=== PATIENT | male | born 1975 | race Caucasian/White ===

== ENCOUNTER 2022-05-29 15:18 | Emergency (ER) | payer OTHER, SELFPAY ==
[2022-05-29 15:25] VITALS: BP 151/97; PULSE 98; RESP 16; TEMP 37; O2SAT 99
--- NOTE | 2022-05-29 16:16 | W.ED.GENAD ---
Discharge Plan Disposition Patient Disposition: HOME Condition: Stable Discharge Details Clinical Impression: Medication refill Primary Care Provider: Unknown,Unknown ED Provider: Yaa Orozco Home Meds and New Rx's Prescriptions: New hydrocodone-acetaminophen 10-325 mg tablet 1 tab PO Q6H PRN7 Days Qty: 28 0RF Rx Instructions: Take one tablet 4 times daily as needed buprenorphine 20 mcg/hour patch weekly 1 patch transdermal Q7D Qty: 4 0RF No Action dextroamphetamine sulfate 5 mg Tablet 5 mg PO DAILY clonazepam 1 mg Tablet 1 mg PO TID hydrocodone-acetaminophen 10-325 mg Tablet 1 tab PO Q6H vitamin B complex Tablet 1 tab PO DAILY buprenorphine 20 mcg/hour Patch Weekly 1 patch TRANSDERMAL QWEEK Discharge Instructions Instructions: Medicine Refill (ED) Additional Instructions: Please contact your primary care provider's office deceiving get a sooner appointment. The prescription she requested have been sent to the pharmacy on file. Follow up with primary care provider in 3-5 days. Return to ED sooner if any worsening or concerns. Increase oral fluids. Call the Pain clinic here at [facility] tosee about establishing care. Referrals: PAIN CLINIC,[facility] [OTHER] - 3 days Philip Gastelum [ [facility] STAFF PHYSICIAN] - Dionte Penn DO [OSTEOPATHIC DOCTOR] - Discharge Data Discharge Date/Time-TO BE ENTERED AT DEPARTURE: 05/29/22 16:32 Medical Decision Making Prescription refill for buprenorphine transdermal patch #4, and hydrocodone Tylenol No. 20 8 tablets. Patient was placed on future management list and referred to the pain clinic. This text was generated using [employer] dictation system, please disregard any oddities of phrase or misspellings. HPI General Mode of arrival: ambulatory. Date/Time Provider Initiated Documentation: 05/29/22 15:54. Limitations to Documentation: no limitations. Information obtained by: patient and RN notes reviewed. HPI Narrative: 46-year-old male presents to the ER with chief complaint of prescription medication refill. Patient states that he is originally from [place] and was seeing a pain specialist for back problems and he ran out of his pain medication over the weekend. I did check [facility] and he last had hydrocodone Tylenol 10-325 mg #84 filled on May 03, 2022 he also takes buprenorphine 20 mcg patches which she last got filled April 29. He reports that he is scheduled to see his PCP in [place] but not for 1 month. He was unaware that there is a pain clinic here at [facility] I will give him a referral for that. Related Data Home Medications Medication Instructions Recorded Confirmed buprenorphine 20 mcg/hour weekly 1 patch transdermal Q7D #4 ea 05/29/22 transdermal patch buprenorphine 20 mcg/hour weekly 1 patch transdermal QWEEK 05/29/22 05/29/22 transdermal patch clonazepam 1 mg tablet 1 mg PO TID 05/29/22 05/29/22 dextroamphetamine sulfate 5 mg 5 mg PO DAILY 05/29/22 05/29/22 tablet hydrocodone 10 mg-acetaminophen 1 tab PO Q6H 05/29/22 05/29/22 325 mg tablet hydrocodone 10 mg-acetaminophen 1 tab PO Q6H PRN 7 days #28 tabs 05/29/22 325 mg tablet vitamin B complex 1 tab PO DAILY 05/29/22 05/29/22 Previous Rx's Medication Instructions Recorded buprenorphine 20 mcg/hour weekly 1 patch transdermal Q7D #4 ea 05/29/22 transdermal patch hydrocodone 10 mg-acetaminophen 1 tab PO Q6H PRN 7 days #28 tabs 05/29/22 325 mg tablet Allergies Allergy/AdvReac Type Severity Reaction Status Date / Time No Known Allergies Allergy Unverified 05/29/22 15:31 General Stated Complaint: Nk/Back Pain DREA: 4 Review of Systems Narrative: Chronic back pain, Ankylosing Spondylitis All systems reviewed & are unremarkable except as noted in HPI and below PFSH All Active Problems (Updated 05/29/22 @ 16:23 by Yaa Orozco NP) Medication refill (Acute) Social History Smoking/Tobacco Use Status: Never Smoking risk assessment performed?: Yes Alcohol Intake: never Drug use: Never Substance use type: does not use Do you feel safe at home: Yes Do you feel safe in your relationship?: Yes Exam Narrative Exam Narrative: Constitutional: Alert and oriented x3. Appears stated age. Normal body habitus. Head: Normocephalic, no trauma. Chest: RRR, Normal S1, S2, distal pulses intact. Resp: Lungs clear to auscultation bilaterally, no wheezes, rales, or rhonchi. Abdomen: Soft, non-distended, Normoactive bowel sounds all 4 quads. Musculoskeletal: Normal gait, 5/5 strength to all four extremities. Skin: No suspicious rashes or lesions. Capillary refill less than 2 sec. Neurologic: Cranial nerves II-XII intact. Alert and oriented x 3. Motor: No deficits noted. Sensory: Intact bilaterally all 4 extremities. Reflexes: DTR's intact bilaterally.. Hematologic/Lymphatic: No ecchymosis, no lymphadenopathy. Course Vital Signs Vital signs: Vital Signs Temperature 37.0 C 05/29/22 15:25 Pulse 98 H 05/29/22 15:25 Respiratory Rate 16 05/29/22 15:25 Blood Pressure 151/97 H 05/29/22 15:25 Pulse Oximetry 99 05/29/22 15:25 Temperature 37.0 C 05/29/22 15:25 Temperature Source Temporal Artery Scan 05/29/22 15:25 Pulse 98 H 05/29/22 15:25 Respiratory Rate 16 05/29/22 15:25 Blood Pressure 151/97 H 05/29/22 15:25 Blood Pressure Position Sitting 05/29/22 15:25 Pulse Oximetry 99 05/29/22 15:25 Oxygen Delivery Method Room Air 05/29/22 15:25 Oxygen Flow Rate 0 05/29/22 15:25 Pain Level 8 05/29/22 15:25
--- NOTE | 2022-05-29 16:46 | NUR.NOTE ---
Nursing Note: Referral faxed to Pain Clinic for chronic back pain/ankylosingspondylitis; AARON.
== END 2022-05-29 16:32 | disposition home or self-care (01) ==
PROVIDERS: Emergency Provider Registered Nurse Emergency
DX: Z76.0 Encounter for issue of repeat prescription (principal)
CPT/HCPCS: 99281

== ENCOUNTER 2022-06-17 11:28 | Emergency (ER) | payer OTHER, SELFPAY ==
[2022-06-17 11:41] VITALS: BP 156/83; PULSE 117; RESP 18; TEMP 37.2; O2SAT 100
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
== END 2022-06-17 14:00 | disposition home or self-care (01) ==
PROVIDERS: Emergency Provider Physician Assistant
DX: M54.9 Dorsalgia, unspecified (principal); G89.29 Other chronic pain; Z76.0 Encounter for issue of repeat prescription; M40.204 Unspecified kyphosis, thoracic region
CPT/HCPCS: 99281

== ENCOUNTER 2024-05-10 09:41 | Emergency (ER) | payer MEDICARE, MEDICAID, SELFPAY ==
[2024-05-10 09:44] VITALS: BP 168/94; PULSE 98; RESP 20; TEMP 37; O2SAT 98
[2024-05-10 09:57] VITALS: BP 168/80; PULSE 80; RESP 16; TEMP 36.6; O2SAT 98
--- NOTE | 2024-05-10 10:02 | ED.GENADUL_ITS ---
Discharge Plan Disposition Patient Disposition: Home Condition: Improving Discharge Details Clinical Impression: Dental infection Primary Care Provider: Chris Topete ED Provider: German Clemons Home Meds and New Rx's Prescriptions: New amoxicillin-pot clavulanate 875-125 mg tablet 1 tab PO BID 7 Days Qty: 14 0RF No Action dextroamphetamine sulfate 5 mg Tablet 5 mg PO DAILY clonazepam 1 mg Tablet 1 mg PO TID hydrocodone-acetaminophen 10-325 mg Tablet 1 tab PO Q6H vitamin B complex Tablet 1 tab PO DAILY buprenorphine 20 mcg/hour patch weekly 1 patch transdermal Q7D Qty: 4 0RF Discharge Instructions Instructions: Dental Pain Additional Instructions: Please follow-up with primary dentist and primary care physician. Return to the emergency department for any worsening symptoms HPI General Date/Time Provider Initiated Documentation: 05/10/24 09:56 . HPI Narrative: 48-year-old male presents with left upper dental infection over the last couple of days, swelling and pain to face, denies fevers chills trouble speaking or swallowing Related Data Home Medications ?Medication ?Instructions ?Recorded ?Confirmed buprenorphine 20 mcg/hour weekly 1 patch transdermal Q7D #4 ea 05/29/22 05/10/24 transdermal patch clonazepam 1 mg tablet 1 mg PO TID 05/29/22 05/10/24 dextroamphetamine sulfate 5 mg 5 mg PO DAILY 05/29/22 05/10/24 tablet hydrocodone 10 mg-acetaminophen 1 tab PO Q6H 05/29/22 05/10/24 325 mg tablet vitamin B complex 1 tab PO DAILY 05/29/22 05/10/24 amoxicillin 875 mg-potassium 1 tab PO BID 7 days #14 tabs 05/10/24 clavulanate 125 mg tablet Previous Rx's ?Medication ?Instructions ?Recorded buprenorphine 20 mcg/hour weekly 1 patch transdermal Q7D #4 ea 05/29/22 transdermal patch amoxicillin 875 mg-potassium 1 tab PO BID 7 days #14 tabs 05/10/24 clavulanate 125 mg tablet Allergies Allergy/AdvReac Type Severity Reaction Status Date / Time No Known Allergies Allergy Unverified 05/10/24 09:45 General Stated Complaint: DentalOral DREA: 4 Exam Narrative Exam Narrative: Multiple fractured carious teeth some erythema to gumline no discernible fluctuant pocket Soft submental sublingual and submandibular space Speaking full sentences tolerating secretions moist mucous membranes No respiratory distress speaking full sentences Alert interactive ambulatory Full range of motion of neck, no crepitus or fluctuance, some mild left cervical lymphadenopathy Course Vital Signs Vital signs: Vital Signs Temperature 37 C 05/10/24 09:44 Pulse 98 H 05/10/24 09:44 Respiratory Rate 20 05/10/24 09:44 Blood Pressure 168/94 H 05/10/24 09:44 Pulse Oximetry 98 05/10/24 09:44 Temperature 36.6 C 05/10/24 09:57 Temperature Source Skin 05/10/24 09:44 Pulse 80 05/10/24 09:57 Respiratory Rate 16 05/10/24 09:57 Respiratory Effort Normal 05/10/24 09:52 Blood Pressure 168/80 H 05/10/24 09:57 Blood Pressure Position Supine 05/10/24 09:57 Pulse Oximetry 98 05/10/24 09:57 Oxygen Delivery Method Room Air 05/10/24 09:44 Oxygen Flow Rate 0 05/10/24 09:44 Pain Level 9 05/10/24 09:57 Medical Decision Making 48-year-old male presents with left upper dental infection no signs of dental abscess or deep space infection of head or neck, patient is afebrile nontoxic tolerate secretions normal voice soft submental sublingual and submandibular space, some mild left cervical lymphadenopathy. Will initiate Augmentin and provide dose of Toradol here for anti-inflammatory and analgesic purposes. Patient courage to follow-up closely with dentist. Home care instructions and return precautions given Quality:SDOH Health Related Social Needs: No Data to Display PFSH All Active Problems (Updated 05/10/24 @ 10:04 by German Clemons MD) Dental infection (Acute) Social History Smoking/Tobacco Use Status: Never Smoking risk assessment performed?: Yes Alcohol Intake: never Drug use: Never Substance use type: does not use Housing: other Do you feel safe at home: Yes Do you feel safe in your relationship?: Yes
[2024-05-10] MEDS: Amoxicillin 875/Clav. 125 TAB PO (10:29)
[2024-05-10] MEDS: Ketorolac 15 MG/ML VIAL IM (10:30)
== END 2024-05-10 10:35 | disposition home or self-care (01) ==
LOC: ER 10:46
PROVIDERS: Emergency Provider Emergency Medicine; PCP Family Medicine
DX: K08.89 Other specified disorders of teeth and supporting structures (principal); K04.7 Periapical abscess without sinus
CPT/HCPCS: 96372; 99284; 99283; J1885

== ENCOUNTER 2024-11-29 18:46 | Outpatient (REF) | payer MEDICARE, MEDICAID, SELFPAY ==
[2024-11-29 20:17] LABS: *AMPHETAMINES SCREEN URINE Negative (Negative); *BARBITURATES SCREEN URINE Negative (Negative); *BENZODIAZEPINES SCREEN URINE Negative (Negative); Cannabinoids THC Negative (Negative); Cocaine Screen,Urine Negative (Negative); METHADONE URINE SCREEN Negative (Negative); OPIATES URINE SCREEN Negative (Negative)
[2024-11-29 20:20] LABS: Tricyclic Antidepressants Negative (Negative)
[2024-12-04 14:13] LABS: Buprenorphine 122.9 ng/mL (Cutoff: 5.0); Norbuprenorphine 666.3 ng/mL (Cutoff: 2.5)
[2024-12-08 08:18] LABS: Naloxone Screen Total Ur None Detected
== END 2024-11-29 18:47 | disposition home or self-care (01) ==
LOC: LBN 18:46
PROVIDERS: PCP Family Medicine; Visit Provider Emergency Medicine
DX: F11.20 Opioid dependence, uncomplicated (principal)
CPT/HCPCS: 80307; 80348

== ENCOUNTER 2025-03-21 03:35 | Outpatient (CLI) | payer MEDICARE, MEDICAID, SELFPAY ==
[2025-03-21 09:56] LABS: Abs Immature Grans 0.02 10^3/uL (0.0-0.06); HCT 40.3 % (40.0-50.0); HGB 13.4 g/dL (13.5-17.5); Immature Grans % 0.3 %; MCH 30.9 pg (27.0-33.0); MCHC 33.3 % (32.0-36.0); MCV 93 fL (80-95); MPV 10.0 fL (8.0-11.0); Platelet Count 218 10^3/uL (130-400); RBC 4.34 10^6/uL (4.36-5.78); RDW 12.7 % (11.8-14.1); RDW-SD 43.5 fL; WBC 6.43 10^3/uL (4.4-10.8)
[2025-03-21 10:09] LABS: Hemoglobin A1C 5.2 % (<5.7)
[2025-03-21 11:21] LABS: Estimated GFR 82.81 (mL/min/1.73m2); TSH 0.83 uIU/mL (0.36-3.74)
[2025-03-21 11:44] LABS: Lithium < 0.2 mmol/L (0.6-1.2)
== END 2025-03-21 03:36 | disposition home or self-care (01) ==
LOC: LBO 03:35
PROVIDERS: PCP Family Medicine; Visit Provider Nurse Practitioner Psychiatric/Mental Health
DX: Z79.899 Other long term (current) drug therapy (principal)
CPT/HCPCS: 36415; 80178; 82565; 83036; 84443; 85025

== ENCOUNTER 2025-03-22 18:25 | Outpatient (REF) | payer MEDICARE, MEDICAID, SELFPAY ==
[2025-03-22 10:46] LABS: Cannabinoids THC Negative (Negative); METHADONE URINE SCREEN Negative (Negative)
[2025-04-05 12:04] LABS: Naloxone Screen Total Ur None Detected; Reporting Limit 5.0 ng/mL
== END 2025-03-22 18:26 | disposition home or self-care (01) ==
LOC: LBN 18:25
PROVIDERS: PCP Family Medicine; Visit Provider Emergency Medicine
DX: Z79.899 Other long term (current) drug therapy (principal); F11.20 Opioid dependence, uncomplicated
CPT/HCPCS: 80307; 80348

== ENCOUNTER 2025-07-10 16:06 | Emergency (ER) | payer MEDICARE, SELFPAY ==
[2025-07-10 16:09] VITALS: BP 173/79; PULSE 98; RESP 18; TEMP 36.2; O2SAT 98
--- NOTE | 2025-07-10 17:11 | ED.GENADUL_ITS ---
Discharge Plan Discharge Details Chief Complaint: Abd Prob Primary Care Provider: Chris Topete ED Provider: Ruy Leon Home Meds and New Rx's Prescriptions: No Action clonazepam 1 mg Tablet 1 mg PO TID buprenorphine HCl 8 mg tablet, sublingual SUBLINGUAL Patient Comments: PLACE THREE TABLETS UNDER THE TONGUE EVERY DAY lithium carbonate 150 mg capsule Patient Comments: TAKE TWO CAPSULES BY MOUTH AT BEDTIME HPI General Mode of arrival: ambulatory . Date/Time Provider Initiated Documentation: 07/10/25 16:38 . Limitations to Documentation: no limitations . Information obtained by: patient . HPI Narrative: HISTORY OF PRESENT ILLNESS This is a 49-year-old male with a history of bipolar disorder and ulcerative colitis presenting with nausea and vomiting. The patient reports that he first experienced vomiting and diarrhea on 07/04/2025, which resolved by 07/05/2025. He was symptom-free until 07/09/2025, when he vomited at 6 AM and had loose stools that later improved. He noticed traces of blood in his musouse after vomiting. He reports no current pain or nausea. The patient is currently taking lithium for bipolar disorder and has not had his lithium levels checked recently. He underwent a colonectomy due to ulcerative colitis over 20 years ago, during which his large intestine was removed and replaced with his small intestine. He has been managing well post-surgery, with his stools being as expected. The patient smokes cigarettes and is currently on buprenorphine. He had his liver levels and testosterone checked less than a month ago at Home [facility] via a finger prick test. The patient has been off anxiety medication for a year now and is trying to manage his anxiety without medication. He decided to come in today because he found the recurrence of symptoms unusual and was advised by someone to get checked out early. PAST SURGICAL HISTORY: Colonectomy due to ulcerative colitis over 20 years ago. Related Data Home Medications ?Medication ?Instructions ?Recorded ?Confirmed clonazepam 1 mg tablet 1 mg PO TID 05/29/22 4 buprenorphine HCl 8 mg sublingual mg sublingual tablet lithium carbonate 150 mg capsule mg 07/10/25 Allergies Allergy/AdvReac Type Severity Reaction Status Date / Time No Known Allergies Allergy Unverified 07/10/25 16:13 General Stated Complaint: Abd Prob DREA: 3 Review of Systems All systems reviewed & are unremarkable except as noted in HPI and below Exam Const General: cooperative and no acute distress HENMT Mouth: moist mucous membranes Eyes Conjunctivae: normal conjunctivae Sclera: normal sclerae Resp Auscultation: clear to auscultation bilaterally, no rales, no rhonchi and no wheezes Cardio Rate: regular rate and not tachycardic Rhythm: regular rhythm GI Palpation: soft, not firm, no guarding, no masses, not rigid and nontender Other: Well-healed midline abdominal scar Skin General skin exam: no rashes or lesions noted Neuro General: patient alert, patient awake and tone normal Psych Appearance: grossly normal Mood: anxious mood Affect: anxious affect Course Vital Signs Vital signs: Vital Signs Temperature 36.2 C L 07/10/25 16:09 Pulse 98 H 07/10/25 16:09 Respiratory Rate 18 07/10/25 16:09 Blood Pressure 173/79 H 07/10/25 16:09 Pulse Oximetry 98 07/10/25 16:09 Temperature 36.2 C L 07/10/25 16:09 Temperature Source Tympanic 07/10/25 16:09 Pulse 98 H 07/10/25 16:09 Respiratory Rate 18 07/10/25 16:09 Blood Pressure 173/79 H 07/10/25 16:09 Pulse Oximetry 98 07/10/25 16:09 Pain Level 0 07/10/25 16:09 Medical Decision Making ASSESSMENT AND PLAN Initial Assessment: 49-year-old male with nausea and vomiting, traces of blood in mucus post vomiting yesterday, history of ulcerative colitis and colonectomy, taking lithium for bipolar disorder. Patient is hypertensive which I suspect is secondary to anxiety. He has no abdominal pain or nausea currently. Abdominal exam benign. Differential Diagnosis: - Gastrointestinal infection: Mentioned neighbor had similar symptoms. - Consider Maylin-Hernandez tears. - [place] toxicity: Possible cause of nausea. - Anxiety ED Course: - Blood tests ordered: lithium level, hemoglobin, red blood cell counts, liver function tests. Disposition: - Sign Out: Dr. Crowley to assume care and reassess patient after labs. Patient Education: Reassured patient about symptoms and anxiety. Explained plan for blood tests and monitoring. This document was written with the assistance of HERNANDEZ Pete. The patient consented to its use. [facility] Social History Smoking/Tobacco Use Status: Never Smoking risk assessment performed?: Yes Alcohol Intake: never Drug use: Never Substance use type: does not use Housing: other Do you feel safe at home: Yes Do you feel safe in your relationship?: Yes
[2025-07-10 18:24] LABS: Abs Immature Grans 0.02 10^3/uL (0.0-0.06); HCT 44.7 % (40.0-50.0); HGB 14.4 g/dL (13.5-17.5); Immature Grans % 0.2 %; MCH 30.3 pg (27.0-33.0); MCHC 32.2 % (32.0-36.0); MCV 94 fL (80-95); MPV 9.7 fL (8.0-11.0); Platelet Count 277 10^3/uL (130-400); RBC 4.76 10^6/uL (4.36-5.78); RDW 12.9 % (11.8-14.1); RDW-SD 44.9 fL; WBC 8.10 10^3/uL (4.4-10.8)
[2025-07-10] MEDS: LORazepam 1 MG TAB PO (18:40)
[2025-07-10 18:46] LABS: ALT 22 U/L (16-63); AST 16 U/L (15-37); Albumin 4.1 g/dL (3.4-5.0); Alkaline Phosphatase 80 U/L (46-116); Anion Gap 7.1 mmol/L (3-11); BUN 9 mg/dL (7-18); Bilirubin, Total 1.1 mg/dL (0.2-1.0); CO2 32.9 mmol/L (21.0-32.0); Calcium 9.0 mg/dL (8.5-10.1); Chloride 102 mmol/L (98-107); Estimated GFR 92.84 (mL/min/1.73m2); Glucose 88 mg/dL (74-106); Lipase 34 U/L (<78); Magnesium 2.2 mg/dL (1.8-2.4); Potassium 3.4 mmol/L (3.5-5.1); Sodium 142 mmol/L (136-145); Total Protein 7.8 g/dL (6.4-8.2)
[2025-07-10 18:52] LABS: Lithium < 0.2 mmol/L (0.6-1.2)
--- NOTE | 2025-07-10 19:10 | ED.PROG_ITS ---
Date of service: 07/10/25 Time of Service: 17:00 Medical Decision Making This is a 49-year-old male patient with a history of bipolar disorder signed out to me after experiencing nausea and vomiting on Friday morning and last Friday, with some blood streaking of his vomit. Please see the previous provider's note for full details of the initial evaluation. In brief, the patient reports that his symptoms have resolved, he is not experiencing abdominal pain at this time, but presented for evaluation given his concern for the blood in the vomit. The patient reports that he is also concerned because he read that lithium levels can increase during periods of nausea and vomiting. He took only half of his lithium last night. He states that he has not been taking his clonazepam, and does endorse some significant anxiety here in the emergency department today. No fevers or chills, does feel hungry and thirsty, has not had any vomiting today. - I independently interpreted the laboratory studies, which show no significant leukocytosis, anemia, or thrombocytopenia. The chemistry panel is without josh dence of electrolyte abnormality, kidney dysfunction, or liver injury. The patient's lithium levels are less than 0.2, and I did shared this finding with the patient. I counseled him to reinitiate his typical dosing of lithium and reach out to his outpatient prescriber, as he may require adjustment in his dosing to reach therapeutic levels. The patient was provided with a dose of oral Ativan given his significant anxiety on arrival at the emergency department. This improved his symptoms greatly and he feels very reassured based on the reassuring workup completed today. His repeat abdominal examination is benign with no tenderness, rigidity, rebound, or guarding. I do not see an indication at this time to proceed with advanced imaging. Urinalysis with trace blood but no significant RBCs on microscopy, and no evidence of infection. The patient remains symptom-free and I feel he is appropriate for discharge to home. He does have a follow-up visit with his mental health provider tomorrow, and I counseled him to share the subtherapeutic lithium level and discuss changes to his medications at that time. At this time, the patient has had a full medical evaluation and is safe for discharge to home. They are hemodynamically stable, ambulatory, and tolerating PO. They are understanding of the follow-up plan and return precautions. They left our facility without incident. Dacia Crowley MD Discharge Plan Disposition Patient Disposition: Home Condition: Stable Discharge Details Clinical Impression: Nausea & vomiting, Abnormal lithium level in blood Primary Care Provider: None,None ED Provider: Dacia Crowley Home Meds and New Rx's Prescriptions: No Action clonazepam 1 mg Tablet 1 mg PO TID buprenorphine HCl 8 mg tablet, sublingual 8 mg SUBLINGUAL DAILY Patient Comments: PLACE THREE TABLETS UNDER THE TONGUE EVERY DAY lithium carbonate 150 mg capsule 300 mg PO QHS Patient Comments: TAKE TWO CAPSULES BY MOUTH AT BEDTIME Discharge Instructions Instructions: Nausea and Vomiting, Adult ED Additional Instructions: You were seen in the emergency department today for evaluation after some nausea and vomiting that occurred yesterday. In our department a full physical examination which was quite reassuring, and had laboratory studies that did not show any abnormalities which would require you to stay in the hospital or undergo a CT scan. You had a very slightly low potassium, and should increase your dietary intake of potassium with foods like bananas, potatoes, leafy greens, etc. Your lithium level today was very low, and I recommend that you discuss this with your mental health provider at your visit tomorrow. I placed a referral to establish with a primary care provider, who can assist you with management of other chronic health conditions. Please maintain good hydration and nutrition, and thank you for allowing us to be part of your care.
[2025-07-10 19:15] LABS: Glucose Negative (Negative)
[2025-07-10 19:30] LABS: C & S Indicated? No; RBC 0-2 HPF (0-2); WBC Negative HPF (0-5)
[2025-07-10 20:03] VITALS: PULSE 60; RESP 16; O2SAT 100
== END 2025-07-10 20:07 | disposition home or self-care (01) ==
PROVIDERS: Student in an Organized Health Care Education/Training Program; Emergency Provider Emergency Medicine
DX: R11.2 Nausea with vomiting, unspecified (principal); R79.89 Other specified abnormal findings of blood chemistry
CPT/HCPCS: 99283 ×2; 00123; 80053; 83690; 86850; 86900; 86901; 80178; 81003; 81015; 83735; 85025

== ENCOUNTER 2025-07-11 11:15 | Outpatient (REF) | payer MEDICARE, SELFPAY ==
[2025-07-11 12:23] LABS: Cannabinoids THC Negative (Negative); METHADONE URINE SCREEN Negative (Negative)
[2025-07-19 12:41] LABS: Naloxone Screen Total Ur None Detected; Reporting Limit 5.0 ng/mL
== END 2025-07-11 11:16 | disposition home or self-care (01) ==
LOC: LBN 11:15
PROVIDERS: Visit Provider Emergency Medicine
DX: F11.20 Opioid dependence, uncomplicated (principal)
CPT/HCPCS: 80307; 80348